=== PATIENT | female | born 1955 | race Caucasian/White ===

== ENCOUNTER → 2017-01-11 | Outpatient (CLI) | payer MEDICARE, OTHER ==
[~2017-01-11] MED LIST: ASA PO; ATORVASTATIN PO; CARAFATE1 GM PO; CYMBALTA60 MG PO; FUROSEMIDE20 MG PO; GABAPENTIN PO; K-DUR TAB 10 M10 MEQ PO; KLONOPIN TAB 00.5 MG PO; LOPRESSOR 50 MG50 MG PO; PERCOCET 10-321 EACH PO; PROTONIX40 MG PO; TRAZODONE HCL100 MG PO; XARELTO1 EACH PO; ZANTAC150 MG PO
[2017-01-11 16:52] LABS: HEMOGLOBIN 11.2 gm/dl (12.3-15.3); RED BLOOD COUNT 3.74 M/UL (4.00-5.10); WHITE BLOOD COUNT 8.3 K/UL (4.5-11.0)
[2017-01-11 17:21] LABS: BUN/CREATININE RATIO 21 (0-10)
== END ==
LOC: LAB 15:15
DX: Z01.812 Encounter for preprocedural laboratory examination (principal); M41.20 Other idiopathic scoliosis, site unspecified
CPT/HCPCS: 36415; 71020; 80053; 85025; 85610; 85730; 93005

== ENCOUNTER → 2017-01-14 | Outpatient (CLI) | payer MEDICARE, OTHER | LOC: KOH-I 08:00 → EXRD 01-15 14:00 | DX: M81.8 Other osteoporosis without current pathological fracture (principal); M41.9 Scoliosis, unspecified; M85.852 Other specified disorders of bone density and structure, left thigh | CPT/HCPCS: 77080 ==